=== PATIENT | female | born 1990 | race Caucasian/White ===

== ENCOUNTER 2020-01-12 19:25 | Emergency (ER) | payer SELFPAY ==
[~2020-01-12] VITALS: Ht 157.4 cm; Wt 139.8 kg
[2020-01-12 19:25] VITALS: BP 169/97
[2020-01-12 20:02] LABS: BACTERIA,URINE LARGE /HPF; BILIRUBIN,URINE NEGATIVE (NEGATIVE); CLARITY,URINE CLOUDY; COLOR,URINE YELLOW; GLUCOSE, URINE (UA) NEGATIVE (NEGATIVE); KETONES,URINE TRACE (NEGATIVE); LEUKOCYTE ESTERASE ,URINE NEGATIVE (NEGATIVE); NITRITE,URINE POSITIVE (NEGATIVE); PROTEIN,URINE NEGATIVE (NEGATIVE)
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
[2020-01-12] MEDS ORDERED: CEPHALEXIN 250 MG (KEFLEX) CAP PO ONE (20:15)
[2020-01-12] MEDS ORDERED: CEPH-507 PO (20:21)
[2020-01-12 20:47] LABS: BASOPHILS # (AUTO) 0.1 10^3/uL (0.0-0.1); BASOPHILS % (AUTO) 0 % (0-10); EOSINOPHILS % (AUTO) 0 % (0-10); HEMATOCRIT 40 % (35-52); LYMPHOCYTES % (AUTO) 18 % (12-44); MEAN CORPUSCULAR HGB CONC 30 G/DL (32-36); MEAN CORPUSCULAR VOLUME 81 FL (80-99); MEAN PLATELET VOLUME 11.2 FL (7.4-10.4); MONOCYTES # (AUTO) 0.4 X 10^3 (0.0-1.0); MONOCYTES % (AUTO) 4 % (0-12); NEUTROPHILS # (AUTO) 8.7 X 10^3 (1.8-7.8); NEUTROPHILS % (AUTO) 78 % (42-75)
[2020-01-12 20:52] LABS: HEMOGLOBIN 12.2 G/DL (11.5-16.0); MEAN CORPUSCULAR HEMOGLOBIN 25 PG (25-34); PLATELET COUNT 110 10^3/uL (130-400); RED CELL DISTRIBUTION WIDTH 17.8 % (10.0-14.5)
== END 2020-01-12 20:47 | disposition home or self-care (01) ==
LOC: ER FS 19:29
DX: N30.01 Acute cystitis with hematuria (principal)
CPT/HCPCS: 36415; 81000; 84703; 85025; 86703; 87088; 87491; 87591; 99283

== ENCOUNTER 2021-06-27 07:51 | Emergency (ER) | payer SELFPAY ==
[~2021-06-27] VITALS: Ht 157.5 cm; Wt 129.3 kg
[~2021-06-27 07:51] MED LIST: CEPH-507 PO
[2021-06-27] MEDS ORDERED: LIDOCAINE 1% INJ 20 ML VIAL INJ STA (08:16)
--- NOTE | 2021-06-27 08:18 | ED Upper Extremity ---
General Chief Complaint: Laceration Stated Complaint: RT THUMB LAC Source: patient History of Present Illness Date Seen by Provider: Jun 27, 2021 Time Seen by Provider: 07:56 Initial Comments 30-year-old female presenting with pain and injury to her right thumb. She is right-hand dominant. She states that she had a window propped open because she had gotten hot overnight. When she had gone to closing the door it was stuck and it came down on her. She had a laceration to the pad of her fingertip on the thumb. She put a pressure dressing with Band-Aids on the thumb to help with the bleeding. The injury happened at 7 AM. She has sensation and movement that is intact. She has not taken anything for pain prior to arrival. She is unsure of her last tetanus booster. She denies any other injuries. Onset: just prior to arrival (7 am) Severity: moderate Pain/Injury Location: right thumb Method of Injury: direct blow (Crush injury with a window) Modifying Factors: Improves With Immobilization; Worse With Movement Allergies and Home Medications Allergies Coded Allergies: No Known Drug Allergies (Unverified , 01/12/20) Patient Home Medication List Home Medication List Reviewed: Yes Cephalexin (Keflex) 500 Mg Capsule, 500 MG PO QID Prescribed by: ALEJO MESSINA on 01/12/202020 Hydrocodone/Acetaminophen (Hydrocodone-Acetamin 5-325 mg) 1 Each Tablet, 1 TAB PO Q4H PRN for PAIN-SEVERE (8-10) Prescribed by: OSEI LUDWIG on 06/27/21 0924 Review of Systems Constitutional: No chills, No fever EENTM: no symptoms reported Respiratory: no symptoms reported Cardiovascular: no symptoms reported Gastrointestinal: no symptoms reported Genitourinary: no symptoms reported Musculoskeletal: see HPI Skin: see HPI Psychiatric/Neurological: Denies Numbness, Denies Paresthesia Past Przivsc-Kwxqyv-Fnrncl Hx Patient Social History Tobacco Use?: No Smoking Status: Never a Smoker Smokeless Tobacco Frequency: Never a User Use of E-Cig and/or Vaping dev: No Use of E-Cig and/or Vaping Ashkan: Never a User Substance use?: No Alcohol Use?: Yes Alcohol Frequency: Once in a while Pt feels they are or have been: No Seasonal Allergies Seasonal Allergies: No Past Medical History Surgeries: No Respiratory: No Cardiac: No Neurological: No Genitourinary: No Gastrointestinal: No Musculoskeletal: No Endocrine: No HEENT: No Cancer: No Psychosocial: No Integumentary: No Physical Exam Vital Signs Vital Signs - First Documented 06/27/21 06/27/21 08:10 09:43 Temp 36.3 Pulse 84 Resp 20 B/P (MAP) 173/102 (125) Pulse Ox 99 O2 Delivery Room Air Capillary Refill : Height, Weight, BMI Height: '" Weight: lbs. oz. kg; 56.00 BMI Method: General Appearance: WD/WN, obese Cardiovascular: normal peripheral pulses Hand: normal ROM, ecchymosis (Distal right thumb), laceration (Pad of the right thumb), soft tissue tenderness (Distal right thumb), swelling (Pad of the right thumb) Neurologic/Tendon: normal sensation, normal motor functions, normal tendon functions Neurologic/Psychiatric: alert, oriented x 3 Skin: warm/dry, ecchymosis (Distal right thumb), other (Flap laceration to the distal right thumb finger pad) Procedures/Interventions Wound Location: Upper Extremities (right thumb) Wound Length (cm): 2.3 Wound's Depth, Shape: flap, contused tissue, sub Q Wound Explored: clean Anesthesia: 1% Lidocaine (Digital block) Volume Anesthetic (ccs): 6 Suture: Ethlion Suture Size: 5-0 Number of Sutures: 4 Sterile Dressing Applied?: Yes Progress After obtaining verbal consent from the patient the thumb was anesthetized using 1% plain lidocaine for ring digital block. Then a turnicot was applied 8:25 AM. X-rays were performed and did not demonstrate any acute fracture or foreign bodies. Then the wound was cleaned using sterile chlorhexidine soap and sterile water. The wound edges were approximated using 5-0 Ethilon for total of 4 simple interrupted stitches. The wound edges were well approximated. The turnicot was removed at 8:[address] a bulky dressing today and advised to keep clean and dry for the first 24 hours. After that she could remove the initial dressing and clean with soap and water. Do not soak the wound. May cover it with a Band-Aid and use finger splint. Stitches out in 10-14 days. Progress/Results/Core Measures Results/Orders My Orders Orders - OSEI LUDWIG MD Lidocaine 1% Inj 20 Ml (Xylocaine 1% Inj (06/27/21 08:16) Dipht,Pertuss(Acell),Tet Adult (Boostrix (06/27/21 08:30) Suture Set At Bedside (06/27/21 08:16) Finger(S) (06/27/21 08:16) Wound Dressing-Ed (06/27/21 09:11) Orthopedic Equiment (06/27/21 09:11) Ed Ortho/Other Supplies Order (06/27/21 09:11) Medications Given in ED Current Medications Medications Dose Ordered Sig/Lucia Route Start Time Stop Time Status Last Admin Dose Admin Diphtheria/ Tetanus/Acell Pertussis 0.5 ml ONCE ONCE IM 06/27/21 08:30 06/27/21 08:31 DC 06/27/21 08:26 0.5 ML Vital Signs/I&O 06/27/21 06/27/21 08:10 09:43 Temp 36.3 Pulse 84 80 Resp 20 18 B/P (MAP) 173/102 (125) 159/94 Pulse Ox 99 O2 Delivery Room Air Room Air Progress Progress Note #1: Progress Note After confirming patient has intact sensation and movement she was verbally consented for digital block and cleaning with possible repair of her wound. Will obtain x-rays of her thumb after injecting anesthetic for digital block of the thumb. We will use a turnicot to help with pain control. Progress Note #2: Progress Note No acute fracture seen on the x-rays of the right thumb. Tetanus booster was updated. The wound was cleaned with chlorhexidine scrub soap and sterile water. A total of 4 simple interrupted stitches with 5-0 Ethilon suture were applied. The wound edges were well approximated. Patient tolerated procedure well without any immediate complication. The turnicot that was applied 8:25 AM was removed at 8:59 AM. Will prescribe a few pain pills to help with severe pain. Advised to use ice and elevation to help with throbbing and pain. Check back with primary or return here for removal of stitches in 10 to 14 days. Diagnostic Imaging Diagonstic Imaging: Xray Plain Films/CT/US/NM/MRI: other (Finger) Comments [facility]. [place], [place] NAME: TESHA LEÓN [facility] REC#: [id number] PT STATUS: REG ER : 1990 PHYSICIAN: OSEI LUDWIG MD ADMIT DATE: 06/27/21/ER FS Draft Date of Exam:06/27/21 FINGER(S) EXAM: FINGER(S) INDICATION: Right thumb crush injury. COMPARISON: None. FINDINGS: No fracture or malalignment. Soft tissue shadows are unremarkable. IMPRESSION: Negative right thumb radiographs. Dictated on workstation # [id number] Dict: 06/27/21 0843 Trans: 06/27/21 0851 CVB [id number] Interpreted by: ARIELLE SWEET MD Electronically signed by: Reviewed: Reviewed by Me Departure Impression Primary Impression: Laceration of right thumb without foreign body without damage to nail Qualified Codes: S61.011A - Laceration without foreign body of right thumb without damage to nail, initial encounter Additional Impression: Crushing injury of right thumb, initial encounter Disposition: HOME, SELF-CARE Condition: Stable Departure-Patient Inst. Decision time for Depature: 09:19 Referrals: NO,LOCAL PHYSICIAN (PCP) Primary Care Physician [facility] Patient Instructions: Laceration Repair With Stitches ED, Crush Injury (DC) Add. Discharge Instructions: Keep wound dressing applied today clean and dry for first 24 hours then may remove it and wash with soap and water but do not soak the wound. After that first 24 hours you may apply a Band-Aid to cover the wound and use the splint to help prevent bumping the thumb against anything. You may apply antibiotic ointment 2-3 times a day as needed to help with healing and preventing infection. If the redness streaking up your thumb and hand, fever over 101, pus draining from the wound then return her check with the clinic about antibiotics for infection. Trying to keep the thumb and hand elevated above your heart at all times to help with throbbing and pain. May apply ice for 10 to 15 minutes every few hours as needed for pain and swelling. The stitches should be removed in 10 to 14 days and this can be done here in the emergency department or with your primary, nurse practitioner Taryn Paige. All discharge instructions reviewed with patient and/or family. Voiced understanding. Scripts Hydrocodone/Acetaminophen (Hydrocodone-Acetamin 5-325 mg) 1 Each Tablet 1 TAB PO Q4H PRN for PAIN-SEVERE (8-10) for 4 Days, #24 TAB 0 Refills Prov: OSEI LUDWIG MD 06/27/21 OSEI LUDWIG MD Jun 27, 2021 08:18
[2021-06-27] MEDS ORDERED: TETANUS,DIPTH,PERTUSS P/F (BOOSTRIX) 0.5 ML VIAL IM ONE (08:30)
--- NOTE | 2021-06-27 08:52 | Diagnostic Imaging Report ---
EXAM: FINGER(S) INDICATION: Right thumb crush injury. COMPARISON: None. FINDINGS: No fracture or malalignment. Soft tissue shadows are unremarkable. IMPRESSION: Negative right thumb radiographs. Dictated by: Dictated on workstation # [id number]
[2021-06-27] MEDS ORDERED: ACHD5005 PO (09:23)
[2021-06-27 09:43] VITALS: BP 159/94
== END 2021-06-27 09:43 | disposition home or self-care (01) ==
LOC: EDUNIT# 07:51 → ER FS 07:55
DX: S61.011A Laceration without foreign body of right thumb without damage to nail, initial encounter (principal); W23.0XXA Caught, crushed, jammed, or pinched between moving objects, initial encounter; Z23 Encounter for immunization
CPT/HCPCS: 73140; 90471; 90715

== ENCOUNTER 2022-04-04 18:46 | Emergency (ER) | payer SELFPAY ==
[~2022-04-04] VITALS: Ht 157.4 cm; Wt 129.2 kg
[~2022-04-04 18:46] MED LIST changes: +ACHD5005 PO
[2022-04-04 18:50] VITALS: BP 190/98
[2022-04-04] MEDS ORDERED: KETO10TA PO (19:21)
--- NOTE | 2022-04-04 19:21 | ED Lower Extremity ---
General Chief Complaint: Lower Extremity Stated Complaint: L KNEE PAIN Nursing Triage Note: Patient states that she went to a walk in clinic for left knee/leg pain 2 weeks ago. Patient reports that they x-rayed the knee and found nothing wrong with it. Patient then states "they had the audacity to tell me I didn't need pain medication when I am in pain". Patient also reports that she had an emergency appointment with Dr. Paige and patient reports they didn't find anything wrong with it. Patient presents to the ER with knee pain and wants to be checked out. Patient reports taking Ibuprofen approximately 5 hours ago with no Tylenol. Source: patient Exam Limitations: no limitations History of Present Illness Date Seen by Provider: Apr 04, 2022 Time Seen by Provider: 18:47 Initial Comments 31-year-old female with no pertinent past medical history coming in due to left knee pain. Is been going on for over a month, went to her walk-in clinic 2 weeks ago with a negative x-ray. Has been taking ibuprofen as needed which does help. The pain is in the anterior portion of her left knee, worse with bending it, better with rest. Otherwise denies any other acute complaints. Allergies and Home Medications Allergies Coded Allergies: No Known Drug Allergies (Unverified , 01/12/20) Patient Home Medication List Home Medication List Reviewed: Yes Cephalexin (Keflex) 500 Mg Capsule, 500 MG PO QID Prescribed by: ALEJO MESSINA on 01/12/202020 Hydrocodone/Acetaminophen (Hydrocodone-Acetamin 5-325 mg) 1 Each Tablet, 1 TAB PO Q4H PRN for PAIN-SEVERE (8-10) Prescribed by: OSEI LUDWIG on 06/27/21 0924 Review of Systems Constitutional: No fever EENTM: no symptoms reported Respiratory: no symptoms reported Cardiovascular: no symptoms reported Gastrointestinal: no symptoms reported Genitourinary: no symptoms reported Musculoskeletal: see HPI Skin: no symptoms reported Psychiatric/Neurological: No Symptoms Reported All Other Systems Reviewed Negative Unless Noted: Yes Past Alrsxle-Yzasjr-Nfyqgo Hx Patient Social History Tobacco type used: Cigarettes Smoking Status: Current Someday Smoker Substance use?: No Alcohol Use?: No Pt feels they are or have been: No Seasonal Allergies Seasonal Allergies: No Past Medical History Surgeries: No Respiratory: No Cardiac: No Neurological: No Genitourinary: No Gastrointestinal: No Musculoskeletal: No Endocrine: No HEENT: No Cancer: No Psychosocial: No Integumentary: No Physical Exam Vital Signs Vital Signs - First Documented 04/04/22 18:50 Temp 37.0 Pulse 84 Resp 18 B/P (MAP) 190/98 (128) Pulse Ox 98 O2 Delivery Room Air Capillary Refill : Less Than 3 Seconds Height, Weight, BMI Height: '" Weight: lbs. oz. kg; 52.00 BMI Method: General Appearance: WD/WN, no apparent distress HEENT: PERRL/EOMI, normal ENT inspection, pharynx normal Neck: non-tender, full range of motion, supple, normal inspection Cardiovascular: regular rate, rhythm, no edema, no murmur Respiratory: chest non-tender, lungs clear, normal breath sounds, no respiratory distress, no accessory muscle use Gastrointestinal: normal bowel sounds, non tender, soft Back: normal inspection Legs: bilateral leg non-tender, bilateral leg normal inspection, bilateral leg normal range of motion, bilateral leg no evidence of injury Knees: right knee non-tender; bilateral knee normal inspection, bilateral knee normal range of motion, bilateral knee no evidence of injury; left knee other (Tender along the patella, no joint line tenderness, no effusion, normal strength with extension, flexion, normal ACL, PCL, LCL, MCL testing) Neurologic/Tendon: normal sensation, normal motor functions, normal tendon functions Neurologic/Psychiatric: no motor/sensory deficits, alert, normal mood/affect, other (Normal gait) Skin: normal color, warm/dry Lymphatic: no adenopathy Procedures/Interventions Suture Size: 5-0 Progress/Results/Core Measures Results/Orders Vital Signs/I&O 04/04/22 18:50 Temp 37.0 Pulse 84 Resp 18 B/P (MAP) 190/98 (128) Pulse Ox 98 O2 Delivery Room Air Blood Pressure Mean: 128 Progress Progress Note : Progress Note 31-year-old female with above history coming in due to atraumatic left knee p ain. ABCs were intact and vitals were stable on presentation. Reportedly she already had a normal knee x-ray. I did a [id number] ultrasound showing no effusion on the knee. Given an IM injection of Toradol for pain control. I will have her follow-up with orthopedics as an outpatient Departure Impression Primary Impression: Left anterior knee pain Disposition: 01 HOME, SELF-CARE Condition: Stable Departure-Patient Inst. Decision time for Depature: 19:19 Referrals: DEMETRIO HOLLINGSWORTH AMANDA S APRN (PCP) Primary Care Physician Patient Instructions: Knee Pain ED Add. Discharge Instructions: There does not appear to be any fluid on your knee, and with a normal x-ray the other day this is reassuring. Is likely an overuse injury typically from different muscles not being strong enough in your kneecap not gliding properly over your knee. Follow-up with Felix Hollingsworth here in [facility] for physical therapy referral potentially and his evaluation. Take the Toradol for the next 3 days. You can take Tylenol with it, but do not take ibuprofen with it until the prescription is done Scripts Ketorolac Tromethamine (Ketorolac Tromethamine) 10 Mg Tablet 10 MG PO Q8H for 4 Days, #12 TAB Prov: SARANYA BROWER MD 04/04/22 Work/School Note: Work Release Form Date Seen in the Emergency Department: Apr 04, 2022 Return to Work: Apr 06, 2022 Restrictions: No Restrictions SARANYA BROWER MD Apr 04, 2022 19:21
[2022-04-04] MEDS ORDERED: KETOROLAC 30 MG/ML VIAL IM ONE (19:30)
== END 2022-04-04 19:26 | disposition home or self-care (01) ==
LOC: EDUNIT# 18:46 → ER FS 18:47
DX: M25.562 Pain in left knee (principal); F17.210 Nicotine dependence, cigarettes, uncomplicated; Z28.310 Unvaccinated for COVID-19
CPT/HCPCS: 99284

== ENCOUNTER 2022-04-20 13:32 | Emergency (ER) | payer SELFPAY ==
[~2022-04-20] VITALS: Ht 157.4 cm; Wt 129.1 kg
[~2022-04-20 13:32] MED LIST changes: +KETO10TA PO
--- NOTE | 2022-04-20 14:10 | ED General ---
General Chief Complaint: COVID19 Suspect/Confirmed Stated Complaint: SOB; LAWS; VOMITING Source of Information: Patient History of Present Illness Date Seen by Provider: Apr 20, 2022 Time Seen by Provider: 14:04 Initial Comments 31-year-old female presenting with complaints of chills and hot flashes, migraine headache, nausea, vomiting, body aches, cough, nasal congestion. She states this is been going on for the last 3 to 4 days but got much worse today. She was supposed to work the next 4 days and with feeling so bad as well as vomiting she came to be evaluated and see what might be going on for her. She was concerned she might have sinusitis. She was exposed to ill contacts within the last 2 weeks and had COVID. She had been taking Tylenol but did not feel that it was helping that much with her symptoms. She felt like she was dehydrated that she was not able to drink normally today. Timing/Duration: 4-5 Days Severity: Severe Modifying Factors: worse with Movement Associated Systoms: No Chest Pain; Cough; No Diaphoresis; Fever/Chills, Headaches, Malaise, Nausea/Vomiting; No Rash, No Seizure, No Shortness of Air, No Syncope, No Weakness Allergies and Home Medications Allergies Coded Allergies: No Known Drug Allergies (Unverified , 01/12/20) Patient Home Medication List Home Medication List Reviewed: Yes Cephalexin (Keflex) 500 Mg Capsule, 500 MG PO QID Prescribed by: ALEJO MESSINA on 01/12/202020 Hydrocodone/Acetaminophen (Hydrocodone-Acetamin 5-325 mg) 1 Each Tablet, 1 TAB PO Q4H PRN for PAIN-SEVERE (8-10) Prescribed by: OSEI LUDWIG on 06/27/21 09 Ketorolac Tromethamine (Ketorolac Tromethamine) 10 Mg Tablet, 10 MG PO Q8H Prescribed by: SARANYA BROWER on 04/04/221920 Ondansetron (Ondansetron Odt) 4 Mg Tab.rapdis, 4 MG PO Q6H PRN for NAUSEA/VOMITING Prescribed by: OSEI LUDWIG on 04/20/22 161 Oseltamivir Phosphate (Tamiflu) 75 Mg Cap, 75 MG PO BID Prescribed by: OSEI LUDWIG on 04/20/22 161 Review of Systems Review of Systems Constitutional: see HPI EENTM: see HPI Respiratory: see HPI Cardiovascular: No chest pain Gastrointestinal: see HPI Genitourinary: No dysuria, No frequency Musculoskeletal: muscle pain (Generalized muscle and body aches) Skin: No rash Psychiatric/Neurological: Headache Hematologic/Lymphatic: Denies Blood Clots Past Grgyhur-Offxft-Tmmrkv Hx Patient Social History Tobacco Use?: Yes Tobacco type used: Cigarettes Smoking Status: Current Everyday Smoker Substance use?: No Alcohol Use?: Yes Alcohol Frequency: Once in a while Pt feels they are or have been: No Immunizations Up To Date Influenza Vaccine Up-to-Date: Yes; Up-to-Date First/Initial COVID19 Vaccinat: Not currently vaccinated Seasonal Allergies Seasonal Allergies: No Past Medical History Surgery/Hospitalization HX: Migraine headaches Surgeries: No Respiratory: No Cardiac: No Neurological: No Genitourinary: No Gastrointestinal: No Musculoskeletal: No Endocrine: No HEENT: No Cancer: No Psychosocial: No Integumentary: No Physical Exam Vital Signs Vital Signs - First Documented 04/20/22 13:35 Temp 36.5 Pulse 97 Resp 16 B/P (MAP) 138/89 (105) Pulse Ox 100 O2 Delivery Room Air Capillary Refill : Height, Weight, BMI Height: '" Weight: lbs. oz. kg; 52.00 BMI Method: General Appearance: Moderate Distress, Obese HEENT: PERRL/EOMI, Pharynx Normal, Moist Mucous Membranes, TM Abnormal (R) (Erythema with dullness to the right TM), Other (Tender to palpation over the frontal sinuses and her left maxillary sinus.) Neck: Full Range of Motion, Normal Inspection, Non Tender, Supple Respiratory: Chest Non Tender, Lungs Clear, Normal Breath Sounds, No Accessory Muscle Use, No Respiratory Distress Cardiovascular: Regular Rate, Rhythm, Normal Peripheral Pulses Gastrointestinal: Normal Bowel Sounds, No Pulsatile Mass, Non Tender, Soft Rectal: Deferred Extremity: Normal Capillary Refill, Normal Inspection, No Pedal Edema Neurologic/Psychiatric: Alert, Oriented x3, forming process worker II-XII Norm as Tested Skin: Normal Color, Warm/Dry; No Rash Focused Exam Lactate Level 04/20/22 14:30: Lactic Acid Level 0.85 Lactic Acid Level Laboratory Tests Test 04/20/22 14:30 Lactic Acid Level 0.85 MMOL/L (0.50-2.00) Procedures/Interventions Suture Size: 5-0 Progress/Results/Core Measures Suspected Sepsis SIRS Temperature: Pulse: Respiratory Rate: Laboratory Tests 04/20/22 14:30: White Blood Count 11.6H Blood Pressure / Mean: 04/20/22 14:30: Lactic Acid Level 0.85 Laboratory Tests 04/20/22 14:30: Creatinine 0.75, Platelet Count 275, Total Bilirubin 0.3 Results/Orders Lab Results Laboratory Tests Test 04/20/22 13:47 04/20/22 14:30 Range/Units Influenza Type A (RT-PCR) Detected H Not Detecte Influenza Type B (RT-PCR) Not Detected Not Detecte SARS-CoV-2 RNA (RT-PCR) Not Detected Not Detecte White Blood Count 11.6 H 4.3-11.0 10^3/uL Red Blood Count 5.00 3.80-5.11 10^6/uL Hemoglobin 12.7 11.5-16.0 g/dL Hematocrit 40 35-52 % Mean Corpuscular Volume 79 L 80-99 fL Mean Corpuscular Hemoglobin 25 25-34 pg Mean Corpuscular Hemoglobin Concent 32 32-36 g/dL Red Cell Distribution Width 16.5 H 10.0-14.5 % Platelet Count 275 130-400 10^3/uL Mean Platelet Volume 11.1 9.0-12.2 fL Immature Granulocyte % (Auto) 0 % Neutrophils (%) (Auto) 89 H 42-75 % Lymphocytes (%) (Auto) 5 L 12-44 % Monocytes (%) (Auto) 5 0-12 % Eosinophils (%) (Auto) 1 0-10 % Basophils (%) (Auto) 0 0-10 % Neutrophils # (Auto) 10.3 H 1.8-7.8 10^3/uL Lymphocytes # (Auto) 0.6 L 1.0-4.0 10^3/uL Monocytes # (Auto) 0.5 0.0-1.0 10^3/uL Eosinophils # (Auto) 0.1 0.0-0.3 10^3/uL Basophils # (Auto) 0.0 0.0-0.1 10^3/uL Immature Granulocyte # (Auto) 0.1 0.0-0.1 10^3/uL Neutrophils % (Manual) 86 % Lymphocytes % (Manual) 5 % Monocytes % (Manual) 5 % Eosinophils % (Manual) 0 % Basophils % (Manual) 0 % Band Neutrophils 4 % Sodium Level 139 135-145 MMOL/L Potassium Level 3.8 3.6-5.0 MMOL/L Chloride Level 102 98-107 MMOL/L Carbon Dioxide Level 25 21-32 MMOL/L Anion Gap 12 5-14 MMOL/L Blood Urea Nitrogen 9 7-18 MG/DL Creatinine 0.75 0.60-1.30 MG/DL Estimat Glomerular Filtration Rate 108 BUN/Creatinine Ratio 12 Glucose Level 96 70-105 MG/DL Lactic Acid Level 0.85 0.50-2.00 MMOL/L Calcium Level 9.2 8.5-10.1 MG/DL Corrected Calcium 9.0 8.5-10.1 MG/DL Total Bilirubin 0.3 0.1-1.0 MG/DL Aspartate Amino Transf (AST/SGOT) 14 5-34 U/L Alanine Aminotransferase (ALT/SGPT) 15 0-55 U/L Alkaline Phosphatase 77 40-136 U/L C-Reactive Protein 3.39 H <0.50 MG/DL Total Protein 7.6 6.4-8.2 GM/DL Albumin 4.3 3.2-4.5 GM/DL My Orders Orders - OSEI LUDWIG MD Covid 19 Inhouse Test (04/20/22 13:49) Influenza A And B By Pcr (04/20/22 13:49) Isolation Central Supply Req (04/20/22 13:49) Cbc With Automated Diff (04/20/22 14:26) Comprehensive Metabolic Panel (04/20/22 14:26) Blood Culture (04/20/22 14:26) Chest 1 View Ap/Pa Only (04/20/22 14:26) Ed Iv/Invasive Line Start (04/20/22 14:26) Crp Fs (04/20/22 14:26) Lactic Acid Analyzer (04/20/22 14:26) Ns Iv 1000 Ml (Sodium Chloride 0.9%) (04/20/22 14:26) Ketorolac Injection (Toradol Injection) (04/20/22 14:26) Ondansetron Injection (Zofran Injectio (04/20/22 14:26) Manual Differential (04/20/22 14:30) Vital Signs/I&O 04/20/22 04/20/22 13:35 16:19 Temp 36.5 36.5 Pulse 97 87 Resp 16 16 B/P (MAP) 138/89 (105) 136/89 Pulse Ox 100 100 O2 Delivery Room Air Room Air Capillary Refill : Progress Note #1: Progress Note Check labs and swab for COVID, influenza. Obtain IV access to give normal saline 1 L IV fluid bolus for hydration, Toradol for headache, Zofran for nausea and vomiting. Chest x-ray to look for signs of pneumonia or fluid buildup or cardiomegaly or pneumothorax. Progress Note #2: Progress Note Her nasal swab was positive for influenza A. Influenza B and COVID were both negative. Her white blood cell count was at the upper limit of normal at 11.6. She had a normal lactic acid of 0.85. Chemistry did not show acute significant abnormality. Chest x-ray did not show acute infiltrate or acute process. Patient reported feeling some improvement after treatment in the ED. Counseled that with her symptoms being worse today we could try giving her Tamiflu in case she was within her 48 hours of onset of influenza. Encourage fluids, rest, quarantine and isolation for at least the next 3 to 4 days while she is most contagious and to use acetaminophen and ibuprofen if needed for pain and body aches as well as chills and hot flashes. Follow-up through the clinic for continued concerns. Diagnostic Imaging Diagonstic Imaging: Xray Plain Films/CT/US/NM/MRI: chest Comments [facility], [place] NAME: TESHA LEÓN Peter [facility] REC#: [id number] PT STATUS: DEP ER : 1990 PHYSICIAN: OSEI LUDWIG MD ADMIT DATE: 04/20/22/ER FS Signed Date of Exam:04/20/22 CHEST 1 VIEW AP/PA ONLY INDICATION: Cough and congestion. TECHNIQUE: Frontal chest obtained at 02:43 p.m. FINDINGS: Heart and mediastinal silhouette are normal in appearance. The lungs are clear. There is no pneumothorax or pleural fluid. IMPRESSION: Negative chest. Dictated by: Dictated on workstation # [id number] Dict: 04/20/22 1507 Trans: 11/03/03 1653 [id number] [id number] Interpreted by: ARMANDO WILKINSON MD Electronically signed by: ARMANDO WILKINSON MD 04/20/221652 Departure Impression Primary Impression: Influenza A Disposition: 01 HOME, SELF-CARE Condition: Stable Departure-Patient Inst. Decision time for Depature: 16:07 Referrals: MARGARETH CRUM APRN (PCP) Primary Care Physician [facility] (Family) Primary Care Physician Patient Instructions: Flu, Adult ED Add. Discharge Instructions: Stay well-hydrated and drink plenty of fluids. Try and get plenty of rest to help your body heal and recover from the influenza. Take the Tamiflu medication to try and help weaken the virus to shorten your course of infection. Continue with the Mucinex to help thin and loosen congestion and cough. You should isolate and quarantine from others while you are having the chills and hot flashes. Follow good hand hygiene and wash your hands frequently. You could also wear mask especially around others. Use a humidifier or vaporizer at the bedside to help with humidity and moisture as you are sleeping and trying to help breathe. All discharge instructions reviewed with patient and/or family. Voiced understanding. Scripts Ondansetron (Ondansetron Odt) 4 Mg Tab.rapdis 4 MG PO Q6H PRN for NAUSEA/VOMITING for 5 Days, #20 TAB 0 Refills Prov: OSEI LUDWIG MD 04/20/22 Oseltamivir Phosphate (Tamiflu) 75 Mg Cap 75 MG PO BID for Influenza for 5 Days, #10 CAP 0 Refills Prov: OSEI LUDWIG MD 04/20/22 Work/School Note: Work Release Form Date Seen in the Emergency Department: Apr 20, 2022 Return to Work: Apr 25, 2022 Restrictions: Return-No Fever (24hrs), Return-No Vomiting(24hrs) Other Restrictions Listed Below: Most contagious next 3-4 days. Quarantine until Wednesday 04/25 OSEI LUDWIG MD Apr 20, 2022 14:10
[2022-04-20] MEDS ORDERED: NS IV 1000 ML 1,000 ML IV STA (14:26)
[2022-04-20] MEDS ORDERED: ONDANSETRON 4 MG/2 ML (SDV) Z0FRAN IVP STA (14:26)
[2022-04-20] MEDS ORDERED: KETOROLAC 30 MG/ML VIAL IVP STA (14:26)
[2022-04-20 14:52] LABS: BASOPHILS % (AUTO) 0 % (0-10); EOSINOPHILS # (AUTO) 0.1 10^3/uL (0.0-0.3); EOSINOPHILS % (AUTO) 1 % (0-10); HEMATOCRIT 40 % (35-52); HEMOGLOBIN 12.7 g/dL (11.5-16.0); LYMPHOCYTES # (AUTO) 0.6 10^3/uL (1.0-4.0); LYMPHOCYTES % (AUTO) 5 % (12-44); MEAN CORPUSCULAR HEMOGLOBIN 25 pg (25-34); MEAN CORPUSCULAR HGB CONC 32 g/dL (32-36); MEAN CORPUSCULAR VOLUME 79 fL (80-99); MEAN PLATELET VOLUME 11.1 fL (9.0-12.2); MONOCYTES # (AUTO) 0.5 10^3/uL (0.0-1.0); MONOCYTES % (AUTO) 5 % (0-12); NEUTROPHILS # (AUTO) 10.3 10^3/uL (1.8-7.8); NEUTROPHILS % (AUTO) 89 % (42-75); PLATELET COUNT 275 10^3/uL (130-400); WHITE BLOOD COUNT 11.6 10^3/uL (4.3-11.0)
--- NOTE | 2022-04-20 15:13 | Diagnostic Imaging Report ---
INDICATION: Cough and congestion. TECHNIQUE: Frontal chest obtained at 02:43 p.m. FINDINGS: Heart and mediastinal silhouette are normal in appearance. The lungs are clear. There is no pneumothorax or pleural fluid. IMPRESSION: Negative chest. Dictated by: Dictated on workstation # [id number]
[2022-04-20 15:15] LABS: BAND NEUTROPHILS 4 %; BASOPHILS % (MANUAL) 0 %; EOSINOPHILS % (MANUAL) 0 %; LYMPHOCYTES % (MANUAL) 5 %; MONOCYTES % (MANUAL) 5 %; NEUTROPHILS % (MANUAL) 86 %
[2022-04-20 15:28] LABS: POTASSIUM 3.8 MMOL/L (3.6-5.0)
[2022-04-20 15:29] LABS: ALBUMIN 4.3 GM/DL (3.2-4.5); BILIRUBIN,TOTAL 0.3 MG/DL (0.1-1.0); CALCIUM 9.2 MG/DL (8.5-10.1); CREATININE SERUM 0.75 MG/DL (0.60-1.30); TOTAL PROTEIN 7.6 GM/DL (6.4-8.2)
[2022-04-20] MEDS ORDERED: ONDA4TAB11 PO (16:10)
[2022-04-20] MEDS ORDERED: OSLT75C PO (16:10)
[2022-04-20 16:19] VITALS: BP 136/89
== END 2022-04-20 16:21 | disposition home or self-care (01) ==
LOC: EDUNIT# 13:32 → ER FS 13:34
DX: J10.1 Influenza due to other identified influenza virus with other respiratory manifestations (principal); F17.210 Nicotine dependence, cigarettes, uncomplicated; E66.9 Obesity, unspecified; Z68.43 Body mass index [BMI] 50.0-59.9, adult; Z20.822 Contact with and (suspected) exposure to COVID-19; Z28.310 Unvaccinated for COVID-19
CPT/HCPCS: 36415; 71045; 80053; 83605; 85007; 85027; 86141; 87040; 87636